=== PATIENT | male | born 1985 | race Caucasian/White ===

== ENCOUNTER 2018-04-06 17:35 | Emergency (ER) | payer OTHER ==
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
[2018-04-06 17:42] VITALS: BP 146/97; PULSE 86; TEMP 98.4; BMI 27.1
[2018-04-06] MEDS ORDERED: IBUPROFEN 600 MG TABLET (FP) PO ONE (18:10)
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
[2018-04-06] MEDS ORDERED: IBUPROFEN 400 MG TABLET (FP) PO ONE (18:13)
== END 2018-04-06 18:44 | disposition home or self-care (01) ==
LOC: JERFT 17:35
DX: M54.5 Low back pain (principal); S63.602A Unspecified sprain of left thumb, initial encounter; X58.XXXA Exposure to other specified factors, initial encounter; Y93.9 Activity, unspecified; Y92.9 Unspecified place or not applicable; Y99.0 Civilian activity done for income or pay
CPT/HCPCS: 73140-TC-LT-FY; 99281-25